=== PATIENT | female | born 2000 | race Caucasian/White ===

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

== ENCOUNTER → 2020-03-27 | Outpatient (CLI) | payer BC, OTHER ==
[2020-03-27 08:58] LABS: Basophils % (A) 1 %; Eosinophils # (A) 0.1 k/uL (0-0.7); Eosinophils % (A) 2 %; HCT 41.8 % (34.0-46.0); HGB 13.7 gm/dL (11.4-16.0); Lymphocytes # (A) 2.3 k/uL (1.0-4.8); Lymphocytes % (A) 31 %; MCH 30.1 pg (25.0-35.0); MCHC 32.8 g/dL (31.0-37.0); MCV 91.7 fL (80.0-100.0); Mean Platelet Volume 8.3; Monocytes # (A) 0.4 k/uL (0-1.0); Monocytes % (A) 6 %; Neutrophils # (A) 4.6 k/uL (1.3-7.7); Neutrophils % (A) 60 %; Platelet Count 261 k/uL (150-450); RBC 4.56 m/uL (3.80-5.40); RDW 12.2 % (11.5-15.5); WBC 7.7 k/uL (4.0-11.0)
[2020-03-27 18:03] LABS: African American GFR (CKD) 123.9 (60.0-200.0); Albumin 4.4 g/dL (3.80-4.90); Anion Gap 9.6 mmol/L (4.00-12.00); BUN/Creat Ratio 12.5 Ratio (12.00-20.00); Calcium 9.1 mg/dL (8.7-10.3); Carbon Dioxide 21.4 mmol/L (21.6-31.8); Chol/HDL Ratio 3.62; Globulin 2.2 g/dL (1.6-3.3); LDL Cholesterol,Calculated 116.6 mg/dL (0.0-131.0); Non-African American GFR(CKD) 106.9 (60.0-200.0); Potassium 4.2 mmol/L (3.5-5.5); Total Bilirubin 0.5 mg/dL (0.3-1.2); Total Protein 6.6 g/dL (6.2-8.2); VLDL Calculation 14.4 mg/dL (5.00-40.00)
== END | disposition home or self-care (01) ==
LOC: LABWHC1 08:11
PROVIDERS: ATTEND Internal Medicine
DX: E78.2 Mixed hyperlipidemia (principal); F32.9 Major depressive disorder, single episode, unspecified
CPT/HCPCS: 36415; 80053; 80061; 84443; 85025

== ENCOUNTER 2021-04-08 19:47 | Emergency (ER) | payer BC, OTHER ==
[2021-04-08 20:13] VITALS: RESP 18; TEMP 98.9
--- NOTE | 2021-04-08 21:25 | XR ---
EXAMINATION TYPE: XR knee complete RT DATE OF EXAM: 04/08/2021 COMPARISON: 2017 HISTORY: Patellar dislocation with 3 location TECHNIQUE: Three-view right knee FINDINGS: Patella appears normally oriented in relation to the femur. Patellofemoral joint space is p reserved. Small joint effusion may be present. No acute fractures are evident. IMPRESSION: 1. No acute abnormality right knee. 2. If additional evaluation would be of benefit, MRI could be performed
--- NOTE | 2021-04-08 21:32 | ED ---
Lower Extremity Injury HPI - General Chief Complaint: Extremity Injury, Lower Stated Complaint: R knee dislocated Time Seen by Provider: 04/08/21 20:23 Source: patient Mode of arrival: ambulatory Limitations: no limitations - History of Present Illness Initial Comments: 20-year-old female patient presents to the emergency department today for evaluation of right knee pain. Patient states that she went to sit down on her bed and twisted her leg causing her patella to go out of place. Patient states that it went to the right lateral knee, states she moved her knee and it slid back into place. States that this is the third time she has had this happen. Has followed up with Dr. Padilla from orthopedics. She has had MRI in the past. Denies any difficulty with range of motion. Denies numbness or tingling to the leg or foot. Denies any other injuries or concerns. - Related Data Home Medications Medication Instructions Recorded Confirmed Atorvastatin [Lipitor] 40 mg PO HS 07/18/19 07/18/19 Marlissa 0.15-30 1 tab PO HS 07/18/19 07/18/19 Previous Rx's Medication Instructions Recorded Melatonin 3 mg PO HS 28 Days tablet 07/26/19 Sertraline [Zoloft] 200 mg PO DAILY 28 Days tab 07/26/19 traZODone HCL [Desyrel] 50 mg PO HS 28 Days tab 07/26/19 Allergies Allergy/AdvReac Type Severity Reaction Status Date / Time No Known Allergies Allergy Verified 04/08/21 20:10 Review of Systems ROS Statement: Those systems with pertinent positive or pertinent negative responses have been documented in the HPI. ROS Other: All systems not noted in ROS Statement are negative. Past Medical History Past Medical History: Hyperlipidemia Additional Past Medical History / Comment(s): dislocation right knee History of Any Multi-Drug Resistant Organisms: None Reported Past Surgical History: Adenoidectomy, Tonsillectomy Past Anesthesia/Blood Transfusion Reactions: No Reported Reaction Past Psychological History: Anxiety, Depression Smoking Status: Never smoker Past Alcohol Use History: None Reported Past Drug Use History: None Reported - Past Family History Family Additional Family Medical History / Comment(s): Depression in her father, anxiety and her mother General Exam Limitations: no limitations General appearance: alert, in no apparent distress, other (This is a well- developed, well-nourished adult female patient in no acute distress. Vital signs upon presentation are temperature 98.9F, pulse 92, respirations 18, blood pressure 127/86, pulse ox 98% on room air.) Respiratory exam: Present: normal lung sounds bilaterally. Absent: respiratory distress, wheezes, rales, rhonchi, stridor Cardiovascular Exam: Present: regular rate, normal rhythm, normal heart sounds. Absent: systolic murmur, diastolic murmur, rubs, gallop, clicks Extremities exam: Present: normal inspection, full ROM, normal capillary refill, other (Skin to the right leg is pink, warm, dry. Cap refill less than 3 seconds. Pedal and posttibial pulses 2+.). Absent: tenderness, pedal edema, joint swelling, calf tenderness Neurological exam: Present: alert, oriented X3, CN II-XII intact Psychiatric exam: Present: normal affect, normal mood Skin exam: Present: warm, dry, intact, normal color. Absent: rash Course Vital Signs 04/08/21 20:10 Temperature 98.9 F Pulse Rate 92 Respiratory 18 Rate Blood Pressure 127/86 O2 Sat by Pulse 98 Oximetry Medical Decision Making - Medical Decision Making 20-year-old female patient presents to the emergency department today for evaluation after her right patella dislocated and relocated. Physical examination is unremarkable. She is able to flex and extend the knee fully. X- ray was obtained and showed no abnormalities, possible small joint effusion. I did discuss findings and results with her. She did present with a knee immobilizer in place, she is instructed to wear this until follow-up with orthopedics. She is instructed to follow-up with accounts specialist for further evaluation as soon as possible. She is instructed to call in the morning for an appointment. She has seen Dr. Padilla in the past. Return parameters were discussed in detail. She verbalizes understanding and agrees with this plan. My attending is Dr. Roblero. - Radiology Data Radiology results: report reviewed, image reviewed Three-view right knee is obtained. Report was reviewed in its entirety. Impression by Dr. Smith shows no acute abdomen abnormality right knee. Disposition Clinical Impression: Dislocation of right patella Disposition: HOME SELF-CARE Condition: Good Instructions (If sedation given, give patient instructions): Patellar Dislocation (ED) Additional Instructions: Rest, ice, elevate the right knee. Use immobilizer when up walking. Follow up with accounts specialist for further evaluation as soon as possible. Return for any new, worsening, or concerning symptoms. Is patient prescribed a controlled substance at d/c from ED?: No Referrals: Derik Olivo MD [Primary Care Provider] - 1-2 days Time of Disposition: 21:32
[2021-04-08 21:57] VITALS: BP 135/76; PULSE 85
== END 2021-04-08 21:57 | disposition home or self-care (01) ==
LOC: EC 19:47
DX: S83.004A Unspecified dislocation of right patella, initial encounter (principal); E78.5 Hyperlipidemia, unspecified; F41.9 Anxiety disorder, unspecified; F32.9 Major depressive disorder, single episode, unspecified; X50.1XXA Overexertion from prolonged static or awkward postures, initial encounter
CPT/HCPCS: 99283

== ENCOUNTER 2025-05-04 16:49 | Emergency (ER) | payer BC ==
[2025-05-04 17:04] VITALS: RESP 20
--- NOTE | 2025-05-04 18:07 | XR ---
EXAMINATION TYPE: XR knee complete RT DATE OF EXAM: 05/04/2025 5:49 PM INDICATION: Patient age:Female; 24 years old; Reason for study: dislocated and popped back in; [facility]. pain COMPARISON: Right knee radiographs 04/08/2021, 02/10/2018 TECHNIQUE: The Right knee(s) was examined in Frontal, lateral and oblique projections. FINDINGS: No evidence of any acute osseous pathology or soft tissue swelling. Moderate-sized suprap atellar joint effusion. IMPRESSION: 1. No acute osseous pathology. 2. Moderate size suprapatellar joint effusion. [facility], , 05/04/2025 6:05 PM
--- NOTE | 2025-05-04 18:10 | ED ---
Lower Extremity Injury HPI - General Chief Complaint: Extremity Injury, Lower Stated Complaint: R Knee Pain/dislocation Time Seen by Provider: 05/04/25 18:10 Source: patient, EMS, RN notes reviewed Mode of arrival: EMS Limitations: no limitations - History of Present Illness Initial Comments: 24-year-old female presenting for right knee injury. States she was at her friend's house when their dog came running and ran into the back of her right knee. 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 She called EMS and reports that when EMS arrived at her home she felt a pop of her kneecap back in place. She is able to bear minimal amount of weight. States pain is improved. Also reports a laceration on right great toe from the fall. Last tetanus unknown. - Related Data Home Medications Medication Instructions Recorded Confirmed Atorvastatin [Lipitor] 40 mg PO HS 07/18/19 07/18/19 Marlissa 0.15-30 1 tab PO HS 07/18/19 07/18/19 Previous Rx's Medication Instructions Recorded Melatonin 3 mg PO HS 28 Days tablet 07/26/19 Sertraline [Zoloft] 200 mg PO DAILY 28 Days tab 07/26/19 traZODone HCL [Desyrel] 50 mg PO HS 28 Days tab 07/26/19 Allergies Allergy/AdvReac Type Severity Reaction Status Date / Time No Known Allergies Allergy Verified 05/04/25 17:04 Review of Systems ROS Statement: Those systems with pertinent positive or pertinent negative responses have been documented in the HPI. ROS Other: All systems not noted in ROS Statement are negative. Past Medical History Past Medical History: Hyperlipidemia Additional Past Medical History / Comment(s): dislocation right knee History of Any Multi-Drug Resistant Organisms: None Reported Past Surgical History: Adenoidectomy, Tonsillectomy Past Anesthesia/Blood Transfusion Reactions: No Reported Reaction Past Psychological History: Anxiety, Depression Smoking Status: Never smoker Past Alcohol Use History: None Reported Past Drug Use History: None Reported - Past Family History Family Additional Family Medical History / Comment(s): Depression in her father, anxiety and her mother General Exam Limitations: no limitations General appearance: alert, in no apparent distress Head exam: Present: atraumatic, normocephalic, normal inspection Eye exam: Present: normal appearance, PERRL, EOMI. Absent: scleral icterus, conjunctival injection, periorbital swelling Right Upper Leg exam: Present: normal inspection, full ROM. Absent: tenderness, swelling Knee exam: Present: swelling (Mild edema present over suprapatellar joint), effusion. Absent: normal inspection, full ROM (Limited flexion and extension of right knee), tenderness (No reproducible tenderness), abrasion, laceration, dislocation, erythema, posterior draw sign, pain/laxity with valgus, pain/laxity with varus Lower Leg exam: Present: normal inspection, full ROM. Absent: tenderness, swelling Ankle exam: Present: normal inspection, full ROM. Absent: tenderness, swelling Foot/Toe exam: Present: full ROM, tenderness, laceration. Absent: normal inspection (There is a superficial jagged laceration present on right great toe with no active bleeding), swelling, deformity, dislocation, erythema, puncture wound Neurovascular tendon exam: Present: no vascular compromise. Absent: pulse deficit, abnormal cap refill, motor deficit Neurological exam: Present: alert, oriented X3 Psychiatric exam: Present: normal affect, normal mood Skin exam: Present: warm, dry, intact, normal color. Absent: rash Course Vital Signs 05/04/25 17:01 Temperature 98.6 F Pulse Rate 90 Respiratory 20 Rate Blood Pressure 130/73 O2 Sat by Pulse 99 Oximetry Medical Decision Making - Medical Decision Making Was pt. sent in by a medical professional or institution (Dr. PA, RECEIVING WEIGHER, urgent care, hospital, or penitentiary...) When possible be specific @ -No Did you speak to anyone other than the patient for history (EMS, parent, family, police, friend...)? What history was obtained from this source @ -No Did you review nursing and triage notes (agree or disagree)? Why? @ -I reviewed and agree with nursing and triage notes Were old charts reviewed (outside hosp., previous admission, EMS record, old EKG, old radiological studies, urgent care reports/EKG's, penitentiary records)? Report findings @ -No old charts were reviewed Differential Diagnosis (chest pain, altered mental status, abdominal pain women, abdominal pain men, vaginal bleeding, weakness, fever, dyspnea, syncope, headache, dizziness, GI bleed, back pain, seizure, CVA, palpatations, mental health, musculoskeletal)? @ -Differential Musculoskeletal Muscular strain, contusion, ligament sprain, fracture, arthritis, septic arthritis, bursitis, cellulitis, muscle spasm, nerve compression, DVT, arterial occlusion, herpes zoster, electrolyte abnormality, tumor.... This is not meant to be in all inclusive list EKG interpreted by me (3pts min.). @ -None X-rays interpreted by me (1pt min.). @ -X-ray right knee reveals no acute osseous pathology, moderate sized suprapatellar joint effusion CT interpreted by me (1pt min.). @ -None done U/S interpreted by me (1pt. min.). @ -None done What testing was considered but not performed or refused? (CT, X-rays, U/S, labs)? Why? @ -None What meds were considered but not given or refused? Why? @ -None Did you discuss the management of the patient with other professionals (professionals i.e. , PA, RECEIVING WEIGHER, lab, RT, psych nurse, social sciences department chair, bioinformatics computer scientist, teacher, campus safety officer, residential case manager)? Give summary @ -No Was smoking cessation discussed for >3mins.? @ -No Was critical care preformed (if so, how long)? @ -No Were there social determinants of health that impacted care today? How? (Homelessness, low income, unemployed, alcoholism, drug addiction, transportation, low edu. Level, literacy, decrease access to med. care, long-term, rehab)? @ -No Was there de-escalation of care discussed even if they declined (Discuss DNR or withdrawal of care, Hospice)? DNR status @ -No What co-morbidities impacted this encounter? (DM, HTN, Smoking, COPD, CAD, Cancer, CVA, ARF, Chemo, Hep., AIDS, mental health diagnosis, sleep apnea, morbid obesity)? @ -None Was patient admitted / discharged? Hospital course, mention meds given and route, prescriptions, significant lab abnormalities, going to OR and other pertinent info. @ -[Discharge. 24-year-old female presenting for right knee injury prior to arrival. Also reports laceration to right great toe. Neurovascularly intact to the right lower extremity. X-ray right knee reveals no acute pathology, moderate-sized suprapatellar joint effusion. Small superficial laceration to right great toe was thoroughly irrigated and skin adhesive applied with appropriate dressing. Tetanus was updated. Discussed diagnosis of right joint effusion of knee. Patient was provided with a knee immobilizer and patient states she has crutches she will use at home. Advised orthopedic follow-up. Patient states she follows up with Dr. Padilla. Appropriate return precautions and supportive care discussed with patient. Case was discussed with my ED attending Dr. Sanchez Undiagnosed new problem with uncertain prognosis? @ -No Drug Therapy requiring intensive monitoring for toxicity (Heparin, Nitro, Insulin, Cardizem)? @ -No Were any procedures done? @ -No Diagnosis/symptom? @ -Right joint effusion of knee, right great toe laceration Acute, or Chronic, or Acute on Chronic? @ -Acute Uncomplicated (without systemic symptoms) or Complicated (systemic symptoms)? @ -Uncomplicated Side effects of treatment? @ -No Exacerbation, Progression, or Severe Exacerbation? @ -No Poses a threat to life or bodily function? How? (Chest pain, [place], ME, pneumonia, PE, COPD, DKA, ARF, appy, cholecystitis, CVA, Diverticulitis, Homicidal, Suicidal, threat to staff... and all critical care pts) @ -No Disposition Clinical Impression: Right knee injury, Laceration of right great toe Disposition: HOME SELF-CARE Condition: Stable Instructions (If sedation given, give patient instructions): Laceration (ED), Swollen Knee Joint (ED) Additional Instructions: Use knee immobilizer and crutches as discussed. Follow-up with Dr. Padilla. Keep wound dry for the first 24 hours, then you may gently wash with an antibacterial soap and water. Please return to the Emergency Department if symptoms worsen or any other concerns. Is patient prescribed a controlled substance at d/c from ED?: No Referrals: Derik Olivo MD [Primary Care Provider] - 1-2 days Time of Disposition: 18:52
[2025-05-04] MEDS: DIPH,PERTUS(ACELL)TETVAC-LF 0.5 ML VIAL IM ONE (18:51)
[2025-05-04 19:03] VITALS: BP 126/80; PULSE 84; TEMP 98.2
== END 2025-05-04 18:55 | disposition home or self-care (01) ==
LOC: EC 16:49
DX: S91.111A Laceration without foreign body of right great toe without damage to nail, initial encounter (principal); S89.91XA Unspecified injury of right lower leg, initial encounter; Z23 Encounter for immunization; W54.8XXD Other contact with dog, subsequent encounter
CPT/HCPCS: 73562; 90715; 99283; 90471; L1830